=== PATIENT | male | born 1955 | race Caucasian/White ===

== ENCOUNTER 2019-06-05 14:19 | Inpatient (IN) | payer OTHER ==
--- NOTE | 2019-06-05 15:00 | HP ---
CIWA Score Nausea/Vomitin-No Nausea/No Vomiting Muscle Tremors: 3 Anxiety: 3 Agitation: 0-Normal Activity Paroxysmal Sweats: No Perspiration Orientation: 0-Oriented Tacttile Disturbances: 0-None Auditory Disturbances: 0-None Visual Disturbances: 0-None Headache: 0-None Present CIWA-Ar Total Score: 6 - Admission Criteria OASAS Guidelines: Admission for Medically Managed Detox: Requires at least one of the followin. CIWA greater than 12 2. Seizures within the past 24 hours 3. Delirium tremens within the past 24 hours 4. Hallucinations within the past 24 hours 5. Acute intervention needed for co occurring medical disorder 6. Acute intervention needed for co occurring psychiatric disorder 7. Severe withdrawal that cannot be handled at a lower level of care (continued vomiting, continued diarrhea, abnormal vital signs) requiring intravenous medication and/or fluids 8. Patient presents the following: Acute intervention needed for co-occurring med or psych disorder (Pt with new onset gait instability and tremors, already dosed with possible librium at ED will complete detox for alcohol withdrawal) Admission Criteria Met: Admission criteria met Admitting History and Physical - Admission Chief Complaint: Alcohol detox History of Present Illness: Pt is a 63 yo M with no known PMHx presenting from [facility] for tremors related to alcohol withdrawal . Pt reports drinking daily for the past 5 days and then stopping 2 days ago. Yesterday he went to hospital by ambulance for tremors. Pt was given 1 dose of librium and sent out for alcohol detox. Pt was referred from the ED of [facility]. Has never been in detox. Reports receiving 4 medications in the ED but unsure what medications they were. 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 [employer] Denies drug use Fhx: Denies medical problems in family Denies fhx of seizures, or tremors Will continue detox with ativan History Source: Patient, Medical Record Limitations to Obtaining History: No Limitations - Social History Usual Living Arrangement: Yes: With Spouse Do you think of yourself as: Straight/Heterosexual ADL: Independent History of Recent Travel: No Admission ROS [facility] Allergies/Adverse Reactions: Allergies Allergy/AdvReac Type Severity Reaction Status Date / Time No Known Allergies Allergy Verified 06/05/19 15:13 Exam Limitations: No Limitations - Ebola screening Have you traveled outside of the country in the last 21 days: No (NN) Have you had contact with anyone from an Ebola affected area: No Do you have a fever: No - Review of Systems Constitutional: No Symptoms Reported EENT: reports: No Symptoms Reported Respiratory: reports: No Symptoms reported Cardiac: reports: No Symptoms Reported GI: reports: No Symptoms Reported : reports: No Symptoms Reported Musculoskeletal: reports: No Symptoms Reported Integumentary: reports: Rash, Other Neuro: reports: Tremors, Unsteady Gait (Small, short steps) Endocrine: reports: No Symptoms Reported Hematology: reports: No Symptoms Reported Psychiatric: reports: No Sypmtoms Reported Patient History - Patient Medical History Hx Anemia: No Hx Asthma: No Hx Chronic Obstructive Pulmonary Disease (COPD): No Hx Cancer: No Hx Cardiac Disorders: No Hx Congestive Heart Failure: No Hx Hypertension: No Hx Hypercholesterolemia: No Hx Pacemaker: No HX Cerebrovascular Accident: No Hx Seizures: No Hx Dementia: No Hx Diabetes: No Hx Gastrointestinal Disorders: No Hx Liver Disease: No Hx Genitourinary Disorders: No Hx Sexually Transmitted Disorders: No Hx Renal Disease (ESRD): No Hx Thyroid Disease: No Hx Human Immunodeficiency Virus (HIV): No Hx Hepatitis C: No Hx Depression: No Hx Suicide Attempt: No Hx Bipolar Disorder: No Hx Schizophrenia: No - Patient Surgical History Past Surgical History: No - PPD History Previous Implant?: No - Reproductive History Patient is a Female of Child Bearing Age (11 -55 yrs old): No - Smoking Cessation Smoking history: Never smoked - Substance & Tx. History Hx Alcohol Use: Yes Hx Substance Use: No Substance Use Type: None Hx Substance Use Treatment: No - Substances abused Alcohol Substance route: Oral Frequency: Daily Amount used: 1/2-2 pints vodka/ 1-2 40 oz beers Age of first use: 30 Date of last use: 06/03/19 Admission Physical Exam [facility] - Physical General Appearance: Yes: Anxious HEENTM: Yes: Within Normal Limits Respiratory: Yes: Chest Non-Tender, Lungs Clear, Normal Breath Sounds Neck: Yes: Within Normal Limits Breast: Yes: Breast Exam Deferred Cardiology: Yes: Regular Rhythm, Regular Rate, S1, S2 Abdominal: Yes: Within Normal Limits Genitourinary: Yes: Within Normal Limits Back: Yes: Within Normal Limits Musculoskeletal: Yes: Other (R kidd non healing ulcer with induration and hyperpigmented edges [id number], RLE >LLE, non tender, per pt has been on for 10 years). No: Gait Steady Extremities: Yes: Tremors (b/l UE and B/l LE) Neurological: Yes: Fully Oriented, Alert, Motor Strength 5/5, Other (increased tone, with rigidity b/l UE) Integumentary: Yes: Other (R kidd non healing ulcer with induration and hyperpigmented edges [id number], RLE >LLE, non tender, per pt has been on for 10 years) Lymphatic: Yes: Within Normal Limits Cleared for Admission [facility] - Detox or Rehab [facility] Level of Care: Medically Managed Breathalyzer - Breathalyzer Breathalyzer: 0 Urine Drug Screen - Results Drug screen NEGATIVE: Yes Inpatient Rehab Admission - Rehab Decision to Admit Inpatient rehab admission?: No
[2019-06-05 15:11] VITALS: BMI 31.6
[2019-06-05] MEDS ORDERED: ACETAMINOPHEN 325 MG TABLET (FP) PO PRN ×2 (15:49)
[2019-06-05] MEDS ORDERED: MAG HYDROX/AL HYDROX/SIMETH 30 ML UNIT-DOSE CUP PO PRN (15:49)
[2019-06-05] MEDS ORDERED: MAGNESIUM CITRATE 300 ML BOTTLE PO PRN (15:49)
[2019-06-05] MEDS ORDERED: METHOCARBAMOL 500 MG TABLET PO PRN (15:49)
[2019-06-05] MEDS ORDERED: BISMUTH SUBSALICYLATE 524 MG/30 ML UD PO PRN (15:49)
[2019-06-05] MEDS ORDERED: LORazepam 1 MG TABLET PO PRN (15:49)
[2019-06-05] MEDS ORDERED: IBUPROFEN 400 MG TABLET (FP) PO PRN (15:49)
[2019-06-05] MEDS ORDERED: MENTHOL/PHENOL 1 EACH UD MM PRN (15:49)
[2019-06-05] MEDS ORDERED: MAGNESIUM HYDROX 2400MG/30ML ORAL SUSPENSION 30 ML CUP PO PRN (15:49)
--- NOTE | 2019-06-05 16:00 | PN ---
Teaching Attending Note Name of Resident: Karin Curry ATTENDING PHYSICIAN STATEMENT I saw and evaluated the patient. I reviewed the resident's note and discussed the case with the resident. I agree with the resident's findings and plan as documented. SUBJECTIVE: Agree with subjective findings of resident OBJECTIVE: Agree with objective findings of resident ASSESSMENT AND PLAN: Agree with plan to admit to detox due to co morbid disorders of patient and poor judgment and episodic alcoholic binges. Dr. Rodriguez
[2019-06-05] MEDS: LORazepam 2 MG TABLET PO SCH ×2 (17:13→22:04)
[2019-06-05] MEDS: THIAMINE HCL 100 MG TABLET (FP) PO SCH (22:04)
[2019-06-06] MEDS: LORazepam 2 MG TABLET PO SCH ×4 (05:39→22:17)
[2019-06-06 10:00] LABS: HEMATOCRIT 38.9 % (35.4-49); HEMOGLOBIN 13.3 GM/dL (11.7-16.9); MCH 31.8 pg (25.7-33.7); MCHC 34.2 g/dl (32.0-35.9); MEAN CELL VOLUME 93.1 fl (80-96); MEAN PLT VOLUME 8.1 fl (7.5-11.1); PLATELET COUNT 145 K/MM3 (134-434); RBC 4.18 M/mm3 (4.00-5.60); RDW 14.1 % (11.9-15.9); WHITE BLOOD COUNT 2.5 K/mm3 (4.0-10.0)
[2019-06-06 10:19] LABS: ALBUMIN 3.2 g/dl (3.4-5.0); BILIRUBIN,TOTAL 1.4 mg/dL (0.2-1); BLOOD UREA NITROGEN 7.8 mg/dL (7-18); CALCIUM 8.4 mg/dL (8.5-10.1); CREATININE 0.7 mg/dL (0.55-1.3); TOT PROT 6.7 g/dl (6.4-8.2)
[2019-06-06] MEDS: PRENATAL VITAMINS W/ FOLIC ACID TABLET (FP) PO SCH (10:22)
[2019-06-06 10:43] LABS: POTASSIUM 2.9 mmol/L (3.5-5.1)
--- NOTE | 2019-06-06 11:53 | PN ---
S CIWA - CIWA Score Nausea/Vomitin-Mild Nausea/No Vomiting Muscle Tremors: 4-Moderate,w/Arms Extend Anxiety: 3 Agitation: 1-Slight > Activity Paroxysmal Sweats: 2 Orientation: 0-Oriented Tacttile Disturbances: 1-Very Mild Itch/Numbness Auditory Disturbances: 0-None Visual Disturbances: 0-None Headache: 1-Very Mild CIWA-Ar Total Score: 13 BHS Progress Note (SOAP) Subjective: 63 years old male admitted on 06/05/19 for alcohol withdrawal sx management treating with ativan detox regimen ate breakfast resting on bed feeling tired limited conversation with staff Objective: 06/06/19 11:54 Vital Signs Temperature 97.7 F 06/06/19 09:42 Pulse Rate 89 06/06/19 09:42 Respiratory Rate 18 06/06/19 09:42 Blood Pressure 141/91 06/06/19 09:42 O2 Sat by Pulse Oximetry (%) Laboratory Last Values WBC 2.5 K/mm3 (4.0-10.0) L 06/06/19 08:00 RBC 4.18 M/mm3 (4.00-5.60) 06/06/19 08:00 Hgb 13.3 GM/dL (11.7-16.9) 06/06/19 08:00 Hct 38.9 % (35.4-49) 06/06/19 08:00 MCV 93.1 fl (80-96) 06/06/19 08:00 MCH 31.8 pg (25.7-33.7) 06/06/19 08:00 MCHC 34.2 g/dl (32.0-35.9) 06/06/19 08:00 RDW 14.1 % (11.9-15.9) 06/06/19 08:00 Plt Count 145 K/MM3 (134-434) 06/06/19 08:00 MPV 8.1 fl (7.5-11.1) 06/06/19 08:00 Sodium 140 mmol/L (136-145) 06/06/19 08:00 Potassium 2.9 mmol/L (3.5-5.1) L* 06/06/19 08:00 Chloride 105 mmol/L (98-107) 06/06/19 08:00 Carbon Dioxide 26 mmol/L (21-32) 06/06/19 08:00 Anion Gap 9 MMOL/L (8-16) 06/06/19 08:00 BUN 7.8 mg/dL (7-18) 06/06/19 08:00 Creatinine 0.7 mg/dL (0.55-1.3) 06/06/19 08:00 Est GFR (CKD-EPI)AfAm 116.40 06/06/19 08:00 Est GFR (CKD-EPI)NonAf 100.43 06/06/19 08:00 Random Glucose 114 mg/dL (74-106) H 06/06/19 08:00 Calcium 8.4 mg/dL (8.5-10.1) L 06/06/19 08:00 Total Bilirubin 1.4 mg/dL (0.2-1) H 06/06/19 08:00 AST 37 U/L (15-37) 06/06/19 08:00 ALT 40 U/L (13-61) 06/06/19 08:00 Alkaline Phosphatase 101 U/L (45-117) 06/06/19 08:00 Total Protein 6.7 g/dl (6.4-8.2) 06/06/19 08:00 Albumin 3.2 g/dl (3.4-5.0) L 06/06/19 08:00 RPR Titer Nonreactive (NONREACTIVE) 06/06/19 08:00 HIV 1&2 Antibody Screen Negative 06/06/19 08:00 HIV P24 Antigen Negative 06/06/19 08:00 lab noted low wbc low K+ 06/06/19 11:56 repeat cbc with diff K+ supplement 40 meq x 2 dosage repeat 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
[2019-06-06] MEDS: POTASSIUM CHLORIDE ORAL LIQUID 20 MEQ/15 ML PO SCH ×2 (11:55→15:40)
[2019-06-06] MEDS ORDERED: FLU VACCINE QUAD 60 MCG/0.5 ML (MDV 19-20) IM ONE (12:00)
--- NOTE | 2019-06-06 14:46 | EKG ---
Test Reason : Blood Pressure : / mmHG Vent. Rate : 075 BPM Atrial Rate : 075 BPM P-R Int : 190 ms QRS Dur : 088 ms QT Int : 402 ms P-R-T Axes : 060 015 017 degrees QTc Int : 448 ms NORMAL SINUS RHYTHM NORMAL ECG NO PREVIOUS ECGS AVAILABLE Confirmed by ARACELI MCKEON MD ([id number]) on 06/06/2019 2:45:54 PM Referred By: GRZEGORZ Confirmed By:ARACELI MCKEON MD
[2019-06-06] MEDS: THIAMINE HCL 100 MG TABLET (FP) PO SCH (22:17)
[2019-06-06] MEDS: MELATONIN 5 MG TABLETS PO PRN (22:18)
[2019-06-07] MEDS: hydrOXYzine PAMOATE 25 MG CAPSULE (FP) PO PRN ×2 (02:23→22:16)
[2019-06-07] MEDS: LORazepam 1 MG TABLET PO SCH ×4 (05:40→22:14)
[2019-06-07 10:16] LABS: BASO % 0.8 % (0-2.0); EOS % 5.9 % (0-4.5); HEMATOCRIT 38.9 % (35.4-49); HEMOGLOBIN 13.1 GM/dL (11.7-16.9); LYMPH % 37.9 % (8-40); MCH 31.3 pg (25.7-33.7); MCHC 33.7 g/dl (32.0-35.9); MEAN CELL VOLUME 92.9 fl (80-96); MEAN PLT VOLUME 8.5 fl (7.5-11.1); MONO % 7.6 % (3.8-10.2); NEUT % 47.8 % (42.8-82.8); PLATELET COUNT 133 K/MM3 (134-434); RBC 4.19 M/mm3 (4.00-5.60); RDW 13.9 % (11.9-15.9); WHITE BLOOD COUNT 3.1 K/mm3 (4.0-10.0)
[2019-06-07] MEDS: PRENATAL VITAMINS W/ FOLIC ACID TABLET (FP) PO SCH (10:36)
--- NOTE | 2019-06-07 13:32 | PN ---
S CIWA - CIWA Score Nausea/Vomitin-Mild Nausea/No Vomiting Muscle Tremors: 2 Anxiety: 2 Agitation: 2 Paroxysmal Sweats: No Perspiration Orientation: 0-Oriented Tacttile Disturbances: 1-Very Mild Itch/Numbness Auditory Disturbances: 0-None Visual Disturbances: 0-None Headache: 1-Very Mild CIWA-Ar Total Score: 9 BHS Progress Note (SOAP) Subjective: alert,irritable,anxious,interrupted sleep,pain in the body Objective: 06/07/19 13:31 Vital Signs Temperature 98.0 F 06/07/19 09:19 Pulse Rate 86 06/07/19 09:19 Respiratory Rate 17 06/07/19 09:19 Blood Pressure 115/73 06/07/19 09:19 O2 Sat by Pulse Oximetry (%) Assessment: 06/07/19 13:31 withdrawal symptom Plan: continue detox ativan regimen
[2019-06-07] MEDS: MELATONIN 5 MG TABLETS PO PRN (22:14)
[2019-06-07] MEDS: THIAMINE HCL 100 MG TABLET (FP) PO SCH (22:14)
[2019-06-08] MEDS ORDERED: LORazepam 0.5 MG TABLET PO PRN
[2019-06-08] MEDS: LORazepam 0.5 MG TABLET PO SCH ×4 (05:38→22:15)
[2019-06-08] MEDS: PRENATAL VITAMINS W/ FOLIC ACID TABLET (FP) PO SCH (10:17)
--- NOTE | 2019-06-08 11:54 | PN ---
S CIWA - CIWA Score Nausea/Vomitin-No Nausea/No Vomiting Muscle Tremors: None Anxiety: 2 Agitation: 0-Normal Activity Paroxysmal Sweats: 2 Orientation: 0-Oriented Tacttile Disturbances: 0-None Auditory Disturbances: 0-None Visual Disturbances: 0-None Headache: 0-None Present CIWA-Ar Total Score: 4 BHS Progress Note (SOAP) Subjective: c/o mild sweats and anxiety. Objective: 06/08/19 11:53 Vital Signs 06/08/19 06/08/19 06:06 09:26 Temperature 97 F L 98.8 F Pulse Rate 70 73 Respiratory 18 18 Rate Blood Pressure 126/84 127/85 Laboratory Last Values WBC 3.1 K/mm3 (4.0-10.0) L 06/07/19 08:00 RBC 4.19 M/mm3 (4.00-5.60) 06/07/19 08:00 Hgb 13.1 GM/dL (11.7-16.9) 06/07/19 08:00 Hct 38.9 % (35.4-49) 06/07/19 08:00 MCV 92.9 fl (80-96) 06/07/19 08:00 MCH 31.3 pg (25.7-33.7) 06/07/19 08:00 MCHC 33.7 g/dl (32.0-35.9) 06/07/19 08:00 RDW 13.9 % (11.9-15.9) 06/07/19 08:00 Plt Count 133 K/MM3 (134-434) L 06/07/19 08:00 MPV 8.5 fl (7.5-11.1) 06/07/19 08:00 Absolute Neuts (auto) 1.5 K/mm3 (1.5-8.0) 06/07/19 08:00 Neutrophils % 47.8 % (42.8-82.8) 06/07/19 08:00 Lymphocytes % 37.9 % (8-40) 06/07/19 08:00 Monocytes % 7.6 % (3.8-10.2) 06/07/19 08:00 Eosinophils % 5.9 % (0-4.5) H 06/07/19 08:00 Basophils % 0.8 % (0-2.0) 06/07/19 08:00 Nucleated RBC % 0 % (0-0) 06/07/19 08:00 Sodium 140 mmol/L (136-145) 06/06/19 08:00 Potassium 3.5 mmol/L (3.5-5.1) 06/07/19 08:00 Chloride 105 mmol/L (98-107) 06/06/19 08:00 Carbon Dioxide 26 mmol/L (21-32) 06/06/19 08:00 Anion Gap 9 MMOL/L (8-16) 06/06/19 08:00 BUN 7.8 mg/dL (7-18) 06/06/19 08:00 Creatinine 0.7 mg/dL (0.55-1.3) 06/06/19 08:00 Est GFR (CKD-EPI)AfAm 116.40 06/06/19 08:00 Est GFR (CKD-EPI)NonAf 100.43 06/06/19 08:00 Random Glucose 114 mg/dL (74-106) H 06/06/19 08:00 Calcium 8.4 mg/dL (8.5-10.1) L 06/06/19 08:00 Total Bilirubin 1.4 mg/dL (0.2-1) H 06/06/19 08:00 AST 37 U/L (15-37) 06/06/19 08:00 ALT 40 U/L (13-61) 06/06/19 08:00 Alkaline Phosphatase 101 U/L (45-117) 06/06/19 08:00 Total Protein 6.7 g/dl (6.4-8.2) 06/06/19 08:00 Albumin 3.2 g/dl (3.4-5.0) L 06/06/19 08:00 RPR Titer Nonreactive (NONREACTIVE) 06/06/19 08:00 Hep C Ab Diagnostic <0.1 s/co ratio (0.0-0.9) 06/06/19 08:00 HIV 1&2 Antibody Screen Negative 06/06/19 08:00 HIV P24 Antigen Negative 06/06/19 08:00 Labs noted. Assessment: 06/08/19 11:53 AOX3, in no acute respiratory distress. Full ROM, ambulating in the unit. Withdrawal symptoms. For d/c tomorrow. Plan: continue detox. D/C in AM.
[2019-06-08] MEDS: MELATONIN 5 MG TABLETS PO PRN (22:15)
[2019-06-08] MEDS: THIAMINE HCL 100 MG TABLET (FP) PO SCH (22:15)
[2019-06-09] MEDS ORDERED: LORazepam 0.5 MG TABLET PO ONE (05:00)
[2019-06-09 09:16] VITALS: BP 166/92; PULSE 79; TEMP 97
[2019-06-09] MEDS: PRENATAL VITAMINS W/ FOLIC ACID TABLET (FP) PO SCH (09:58)
--- NOTE | 2019-06-09 14:12 | DS ---
[facility] Detox Discharge Summary Admission Date: 06/05/19 Discharge Date: 06/09/19 - History Present History: Alcohol Dependence Additional Comments: 63 years old male admitted on 06/05/19 for alcohol withdrawal sx management treated with ativan detox regimen patient tolerated well alert oriented x 3 cardiac S1S2 regular rate rhythm respiratory clear lung bilaterally on auscultation extremities full range of motion Pertinent Past History: long history of hypertension - Physical Exam Results Vital Signs: Vital Signs Temperature 97.0 F L 06/09/19 09:15 Pulse Rate 79 06/09/19 09:15 Respiratory Rate 18 06/09/19 09:15 Blood Pressure 166/92 06/09/19 09:15 O2 Sat by Pulse Oximetry (%) repeat bp 129/85 patient agrees returning to [facility] for bp monitoring and antihypertensive medication adjustment Pertinent Admission Physical Exam Findings: alcohol withdrawal sx Laboratory Last Values WBC 3.1 K/mm3 (4.0-10.0) L 06/07/19 08:00 RBC 4.19 M/mm3 (4.00-5.60) 06/07/19 08:00 Hgb 13.1 GM/dL (11.7-16.9) 06/07/19 08:00 Hct 38.9 % (35.4-49) 06/07/19 08:00 MCV 92.9 fl (80-96) 06/07/19 08:00 MCH 31.3 pg (25.7-33.7) 06/07/19 08:00 MCHC 33.7 g/dl (32.0-35.9) 06/07/19 08:00 RDW 13.9 % (11.9-15.9) 06/07/19 08:00 Plt Count 133 K/MM3 (134-434) L 06/07/19 08:00 MPV 8.5 fl (7.5-11.1) 06/07/19 08:00 Absolute Neuts (auto) 1.5 K/mm3 (1.5-8.0) 06/07/19 08:00 Neutrophils % 47.8 % (42.8-82.8) 06/07/19 08:00 Lymphocytes % 37.9 % (8-40) 06/07/19 08:00 Monocytes % 7.6 % (3.8-10.2) 06/07/19 08:00 Eosinophils % 5.9 % (0-4.5) H 06/07/19 08:00 Basophils % 0.8 % (0-2.0) 06/07/19 08:00 Nucleated RBC % 0 % (0-0) 06/07/19 08:00 Sodium 140 mmol/L (136-145) 06/06/19 08:00 Potassium 3.5 mmol/L (3.5-5.1) 06/07/19 08:00 Chloride 105 mmol/L (98-107) 06/06/19 08:00 Carbon Dioxide 26 mmol/L (21-32) 06/06/19 08:00 Anion Gap 9 MMOL/L (8-16) 06/06/19 08:00 BUN 7.8 mg/dL (7-18) 06/06/19 08:00 Creatinine 0.7 mg/dL (0.55-1.3) 06/06/19 08:00 Est GFR (CKD-EPI)AfAm 116.40 06/06/19 08:00 Est GFR (CKD-EPI)NonAf 100.43 06/06/19 08:00 Random Glucose 114 mg/dL (74-106) H 06/06/19 08:00 Calcium 8.4 mg/dL (8.5-10.1) L 06/06/19 08:00 Total Bilirubin 1.4 mg/dL (0.2-1) H 06/06/19 08:00 AST 37 U/L (15-37) 06/06/19 08:00 ALT 40 U/L (13-61) 06/06/19 08:00 Alkaline Phosphatase 101 U/L (45-117) 06/06/19 08:00 Total Protein 6.7 g/dl (6.4-8.2) 06/06/19 08:00 Albumin 3.2 g/dl (3.4-5.0) L 06/06/19 08:00 RPR Titer Nonreactive (NONREACTIVE) 06/06/19 08:00 Hep C Ab Diagnostic <0.1 s/co ratio (0.0-0.9) 06/06/19 08:00 HIV 1&2 Antibody Screen Negative 06/06/19 08:00 HIV P24 Antigen Negative 06/06/19 08:00 lab noted - Treatment Hospital Course: Detox Protocol Followed, Detoxed Safely, Responded well, Discharged Condition Good, Rehab Referral Accepted Patient has Accepted a Rehab Referral to: community support approach - Medication Discharge Medications: Ambulatory Orders NK [No Known Home Medication] 06/05/19 - Diagnosis (1) Alcohol dependence with withdrawal, uncomplicated Status: Acute (2) Hypertension Status: Chronic Qualifiers: Hypertension type: essential hypertension Qualified Code(s): I10 - Essential (primary) hypertension - AMA Did Patient Leave Against Medical Advice: No CIWA Score - CIWA Score Nausea/Vomitin-No Nausea/No Vomiting Muscle Tremors: None Anxiety: 1-Mildly Anxious Agitation: 0-Normal Activity Paroxysmal Sweats: 1-Minimal Palms Moist Orientation: 0-Oriented Tacttile Disturbances: 0-None Auditory Disturbances: 0-None Visual Disturbances: 0-None Headache: 0-None Present CIWA-Ar Total Score: 2
== END 2019-06-09 11:30 | disposition home or self-care (01) | DRG 775 ==
LOC: YASAS 14:19 → Y3N 15:43
PROVIDERS: ADMIT Allergy & Immunology; ATTEND Allergy & Immunology
PROC: HZ2ZZZZ Detoxification Services for Substance Abuse Treatment (ICD-10-PCS; principal; 2019-06-05)
DX: F10.230 Alcohol dependence with withdrawal, uncomplicated (principal); I10 Essential (primary) hypertension; E87.6 Hypokalemia; D72.819 Decreased white blood cell count, unspecified
CPT/HCPCS: 36415; 80053; 84132; 85025; 85027; 86593; 86803; 87389; 93005; 93010; G0008; Q2036